=== PATIENT | female | born 1960 | race Caucasian/White ===

== ENCOUNTER 2023-05-18 13:17 | Inpatient (IN) | payer BC ==
[2023-05-18] MEDS ORDERED: HYDRALAZINE HCL 20 MG/ML VIAL ONE (14:18)
[2023-05-18 14:19] LABS: Absolute Lymphocytes (CBC) 2.3 K/uL (0.7-4.9); Hematocrit 47.1 % (36.0-45.0); Lymphocytes % 21.8 % (15.3-44.8); MCV 85.4 fL (80-100); MPV 8.7 fL (7.6-11.3); Platelets 266 thou/uL (152-406); RBC Red Blood Cell Count 5.52 M/uL (3.86-4.86)
[2023-05-18 14:25] LABS: Protime INR 1.11
[2023-05-18 14:32] LABS: Albumin 3.7 g/dL (3.4-5.0); Bilirubin Direct 0.2 mg/dL (0-0.2); Bilirubin Indirect, Calculated 0.4 mg/dL (0.2-0.8); Bilirubin Total 0.6 mg/dL (0.2-1.0); Magnesium 1.8 mg/dL (1.6-2.4); Potassium 3.8 mEq/L (3.5-5.1); Protein, Total 7.7 g/dL (6.4-8.2); Troponin High Sensitivity 5.8 pg/mL (<58.9)
--- NOTE | 2023-05-18 14:33 | RAD REPORT ---
EXAM DESCRIPTION: CT - Head Brain Wo Cont - 05/18/2023 1:37 pm CLINICAL HISTORY: NUMBNESS COMPARISON: No comparisons TECHNIQUE: Noncontrast head CT images were obtained without IV contrast. Multiplanar reformats were generated and reviewed. All CT scans are performed using dose optimization technique as appropriate and may include automated exposure control or mA/KV adjustment according to patient size. FINDINGS: Patchy hypoattenuation involving the cortical/ subcortical left occipital lobe and adjacen t left posterior parietal parasagittal lobe. Foci of hypoattenuation along the left body of corpus ca llosum, right centrum semiovale, and left thalamus. Other subtle patchy deep white matter hypoattenua tion most pronounced in the peritrigonal regions, nonspecific, but may relate to chronic small vessel ischemic changes. No intracranial hemorrhage, mass, or edema. Midline structures are unremarkable. Normal ventricular caliber for age. No abnormal extra-axial fluid collections. Mastoid air cells and visualized portions of the paranasal sinuses are clear. No acute bony findings. IMPRESSION: Left occipital and parietal areas of hypoattenuation, may relate to subacute or chronic infarcts. Additional areas of patchy hypoattenuation involving the right centrum semiovale, left corpus callosu m body, and left thalamus. These may relate to foci of infarct/ischemia of uncertain age, although le ss likely may represent sequelae of demyelination in the appropriate clinical setting. The findings were communicated to All Duarte on 05/18/2023 at 14:25 hours.
--- NOTE | 2023-05-18 15:20 | ER ---
Nurse's Notes [facility] Name: Ailyn Cade Age: 63 yrs Sex: Female : 1960 Arrival Date: 05/18/2023 Time: 13:17 Bed 19 Private MD: Diagnosis: Cerebral infarction, unspecified;Paresthesia and weakness of the left upper extremity Presentation: 05/18 13:27 Chief complaint: Patient states: "Around 3pm yesterday, my left arm went numb and I mb9 can't feel any sensation. It feels heavy and weak." Pt denies SOB/CP. Coronavirus screen: Vaccine status: Patient reports receiving the 2nd dose of the covid vaccine. Ebola Screen: No symptoms or risks identified at this time. Initial Sepsis Screen: Does the patient meet any 2 criteria? No. Patient's initial sepsis screen is negative. Does the patient have a suspected source of infection? No. Patient's initial sepsis screen is negative. Risk Assessment: Do you want to hurt yourself or someone else? Patient reports no desire to harm self or others. Onset of symptoms was May 18, 2023. 13:27 Method Of Arrival: Ambulatory mb9 13:27 Acuity: SPENCER 2 mb9 Triage Assessment: 13:30 General: Appears uncomfortable, Behavior is anxious, crying. Pain: Denies pain. EENT: mb9 No deficits noted. Neuro: Level of Consciousness is awake, alert, obeys commands, Oriented to person, place, time, situation, Appropriate for age Breakfast Server are weak on left Weakness in left arm(s) Gait is steady, Speech is normal, Facial symmetry appears normal, Pupils are PERRLA, Numbness in left arm. Cardiovascular: Denies chest pain, shortness of breath. Respiratory: Airway is patent. Respiratory: Denies shortness of breath. GI: No signs and/or symptoms were reported involving the gastrointestinal system. : No signs and/or symptoms were reported regarding the genitourinary system. Derm: Skin is pink, warm \\T\\ dry. Musculoskeletal: Range of motion: limited in left arm. Historical: - Allergies: 13:29 No Known Allergies; mb9 - Home Meds: 13:29 None [Active]; mb9 - PMHx: 13:29 Hypertensive disorder; Diabetes mellitus; Anxiety; Hypercholesterolemia; mb9 - PSHx: 13:29 None; mb9 - Immunization history:: Adult Immunizations up to date. - Social history:: Smoking status: Patient denies any tobacco usage or history of. Screenin:30 [facility] ED Fall Risk Assessment (Adult) Score/Fall Risk Level 0 - 2 = Low Risk. Abuse eh3 screen: Denies threats or abuse. Denies injuries from another. Nutritional screening: No deficits noted. Tuberculosis screening: No symptoms or risk factors identified. Assessment: 13:30 General: Appears in no apparent distress. uncomfortable, Behavior is cooperative, eh3 appropriate for age, anxious. Pain: Denies pain. Neuro: Level of Consciousness is awake, alert, obeys commands, Oriented to person, place, time, situation, Speech is normal, Facial symmetry appears normal, Pupils are PERRLA, Tingling in left arm Numbness in left arm. Cardiovascular: Capillary refill < 3 seconds Patient's skin is warm and dry. Rhythm is sinus rhythm. Respiratory: Airway is patent Respiratory effort is even, unlabored, Respiratory pattern is regular, symmetrical. GI: Abdomen is round non-distended. Derm: Skin is pink, warm \\T\\ dry. Musculoskeletal: Circulation, motion, and sensation intact. in all except left arm. 14:30 Reassessment: Patient appears in no apparent distress at this time. Patient and/or eh3 family updated on plan of care and expected duration. Pain level reassessed. Patient is alert, oriented x 3, equal unlabored respirations, skin warm/dry/pink. 15:30 Reassessment: Patient appears in no apparent distress at this time. Patient and/or eh3 family updated on plan of care and expected duration. Pain level reassessed. Patient is alert, oriented x 3, equal unlabored respirations, skin warm/dry/pink. 16:30 Reassessment: Patient appears in no apparent distress at this time. Patient and/or eh3 family updated on plan of care and expected duration. Pain level reassessed. Patient is alert, oriented x 3, equal unlabored respirations, skin warm/dry/pink. 17:30 Reassessment: Patient appears in no apparent distress at this time. Patient and/or eh3 family updated on plan of care and expected duration. Pain level reassessed. Patient is alert, oriented x 3, equal unlabored respirations, skin warm/dry/pink. 19:23 General: Appears in no apparent distress. uncomfortable, Behavior is calm, cooperative. lg3 Pain: Denies pain. Neuro: No deficits noted. [place]edo Agitation-Sedation Scale (RASS): 0 - Alert and Calm Level of Consciousness is awake, alert, obeys commands, Oriented to person, place, time, situation, Breakfast Server are weak on left Weakness Paralysis in left arm(s) Speech is normal, Facial symmetry appears normal, Pupils are PERRLA, Numbness in left arm. Cardiovascular: No deficits noted. Denies chest pain, shortness of breath, Capillary refill < 3 seconds Clubbing of nail beds is absent JVD is absent Patient's skin is warm and dry. Respiratory: No deficits noted. Airway is patent Respiratory effort is even, unlabored, Respiratory pattern is regular, symmetrical. GI: Abdomen is round non-distended, obese, Pt is actively vomiting bile, undigested food, Reports nausea, vomiting. : No deficits noted. No signs and/or symptoms were reported regarding the genitourinary system. EENT: No deficits noted. No signs and/or symptoms were reported regarding the EENT system. Derm: No deficits noted. No signs and/or symptoms reported regarding the dermatologic system. Skin is intact, is healthy with good turgor, Skin is dry, Skin is normal, Skin temperature is warm. Musculoskeletal: Circulation, motion, and sensation intact. Reports numbness in left arm. Vital Signs: 13:27 BP 195 / 97; Pulse 77; Resp 20; Temp 98; Pulse Ox 100% on R/A; Weight 95.25 kg; Height mb9 5 ft. 2 in. ; Pain 0/10; 14:00 BP 191 / 102; Pulse 79; Resp 20; Pulse Ox 100% on R/A; eh3 15:15 BP 188 / 85; Pulse 67; Resp 20; Pulse Ox 97% on R/A; eh3 15:30 BP 184 / 93; Pulse 63; Resp 20; Pulse Ox 97% on R/A; eh3 16:00 BP 192 / 84; Pulse 71; Resp 17; Pulse Ox 97% on R/A; eh3 16:30 BP 187 / 84; Pulse 71; Resp 20; Pulse Ox 97% on R/A; eh3 17:30 BP 152 / 82; Pulse 71; Resp 15; Pulse Ox 97% on R/A; eh3 19:23 BP 170 / 89; Pulse 73; Resp 17 S; Pulse Ox 97% on R/A; lg3 13:27 Body Mass Index 38.41 (95.25 kg, 157.48 cm) mb9 13:27 Pain Scale: Adult mb9 NIH Stroke Scale Scores: 13:30 NIHSS Score: 0 [facility] ED Course: 13:18 Patient arrived in ED. mb9 13:24 Bhupendra Santa MD is Attending Physician. rt 13:26 [facility] jh7 13:29 Triage completed. mb9 13:29 Arm band placed on. mb9 13:30 Patient has correct armband on for positive identification. Bed in low position. Call eh3 light in reach. Side rails up X2. Adult w/ patient. Provided Education on: Use of call talley. Client placed on continuous cardiac and pulse oximetry monitoring. NIBP monitoring applied. 13:31 Mariam Woo, RN is Primary Nurse. eh3 13:38 CT Head Brain wo Cont In Process Unspecified. EDMS 13:49 XRAY Chest (1 view) In Process Unspecified. EDMS 13:55 Inserted saline lock: 22 gauge in left antecubital area, using aseptic technique. Blood eh3 collected. 14:58 Brain W/Wo Cont In Process Unspecified. EDMS 15:17 Jelani Carmona is Hospitalizing Provider. jh7 16:32 No provider procedures requiring assistance completed. eh3 17:25 Inserted saline lock: 22 gauge in right antecubital area, using aseptic technique. eh3 17:26 IV discontinued, intact, bleeding controlled, No redness/swelling at site. Pressure eh3 dressing applied, IV bleeding at insertion site, pt bending arm frequently and unable to keep left arm still. 19:23 Door closed. Noise minimized. Warm blanket given. Family accompanied patient. lg3 19:23 Patient maintains SpO2 saturation greater than 95% on room air. lg3 Administered Medications: 14:08 Drug: hydrALAZINE IVP 10 mg IVP once Route: IVP; Site: left antecubital; eh3 15:15 Follow up: Response: No adverse reaction; Blood pressure is lowered eh3 19:26 Drug: Ondansetron IVP 4 mg IVP once; over 2 minutes Route: IVP; Site: right antecubital;[facility] Medication: 16:32 VIS not applicable for this client. [facility] Outcome: 15:19 Decision to Hospitalize by Provider. [facility] 20:51 Admitted to Tele accompanied by tech, via wheelchair, room 430, [facility] 20:51 Condition: stable 20:51 Instructed on the need for admit, Demonstrated understanding of instructions, 20:51 Patient left the ED. [facility] NIH Stroke Scale - NIH Stroke Score Date: 05/18/2023 Time: 13:30 Total Score = 0 10. Dysarthria (speech clarity - read or repeat words) - 0(Normal) 11. Extinction and Inattention (visual/tactile/auditory/spatial/personal) - 0(No abnormality) 1a. Level of Consciousness (LOC) - 0(Alert) 1b. Level of Consciousness (LOC) (Month \\T\\ Age) - 0(Both) 1c. LOC Commands (Open \\T\\ Closes Eyes/Environmental Air Specialist) - 0(Both) 2. Best Gaze (Lateral Gaze Paresis) - 0(Normal) 3. Visual Field Loss - 0(No visual loss) 4. Facial Palsy - 0(Normal) 5a. Left Arm: Motor (10-second hold) - 0(No drift) 5b. Right Arm: Motor (10-second hold) - 0(No drift) 6a. Left Leg: Motor (5-second hold - always test supine) - 0(No drift) 6b. Right Leg: Motor (5-second hold - always test supine) - 0(No drift) 7. Limb Ataxia (finger/nose \\T\\ heel/baig - test with eyes open) - 0(Absent) 8. Sensory Loss (pinprick arms/legs/face) - 0(Normal) 9. Best Language: Aphasia (description/naming/reading) - 0(No aphasia) Initials: [facility] Signatures: Dispatcher [employer] Vibha Lafleur RN RN 3 Mariam Woo RN RN 3 Roberta Lucio FNP STAFF CYTOTECHNOLOGIST [facility] Mehnaz Chiu RN RN Bhupendra Ellison MD MD rt Corrections: (The following items were deleted from the chart) 17:36 16:32 Patient admitted, [place] place[place] [id number]
--- NOTE | 2023-05-18 15:20 | EDPHYS ---
Physician Documentation [facility] Name: Ailyn Cade Age: 63 yrs Sex: Female : 1960 Arrival Date: 05/18/2023 Time: 13:17 Bed 19 Private MD: ED Physician Bhupendra Santa HPI: 05/18 13:30 This 63 yrs old Unknown Female presents to ER via Ambulatory with complaints of jh7 Numbness Of Arm. 13:30 63-year-old female reports left arm numbness since 3 PM yesterday. She denies injury. jh7 Reports a history of diabetes and hypertension but does not take any medicine. Denies chest pain or shortness of breath. Denies having a PCP.. Historical: - Allergies: 13:29 No Known Allergies; mb9 - Home Meds: 13:29 None [Active]; mb9 - PMHx: 13:29 Hypertensive disorder; Diabetes mellitus; Anxiety; Hypercholesterolemia; mb9 - PSHx: 13:29 None; mb9 - Immunization history:: Adult Immunizations up to date. - Social history:: Smoking status: Patient denies any tobacco usage or history of. ROS: 13:30 Constitutional: Negative for fever, chills, and weight loss, Eyes: Negative for injury, jh7 pain, redness, and discharge, Neck: Negative for injury, pain, and swelling, Cardiovascular: Negative for chest pain, palpitations, and edema, Respiratory: Negative for shortness of breath, cough, wheezing, and pleuritic chest pain, Abdomen/GI: Negative for abdominal pain, nausea, vomiting, diarrhea, and constipation, Skin: Negative for injury, rash, and discoloration, 13:30 MS/Extremity: Negative for injury and deformity, 13:30 MS/extremity: 13:30 Neuro: Positive for numbness, weakness, Negative for altered mental status, dizziness, gait disturbance, headache, loss of consciousness, speech changes, syncope, tingling, 13:30 All other systems are negative, Exam: 13:30 Constitutional: This is a well developed, well nourished patient who is awake, alert, jh7 and in no acute distress. Head/Face: Normocephalic, atraumatic. Eyes: Pupils equal round and reactive to light, extra-ocular motions intact. Lids and lashes normal. Conjunctiva and sclera are non-icteric and not injected. Cornea within normal limits. Periorbital areas with no swelling, redness, or edema. Neck: Trachea midline, no thyromegaly or masses palpated, and no cervical lymphadenopathy. Supple, full range of motion without nuchal rigidity, or vertebral point tenderness. No Meningismus. Cardiovascular: Regular rate and rhythm with a normal S1 and S2. No gallops, murmurs, or rubs. Normal PMI, no JVD. No pulse deficits. Respiratory: Lungs have equal breath sounds bilaterally, clear to auscultation and percussion. No rales, rhonchi or wheezes noted. No increased work of breathing, no retractions or nasal flaring. Abdomen/GI: Soft, non-tender, with normal bowel sounds. No distension or tympany. No guarding or rebound. No evidence of tenderness throughout. Skin: Warm, dry with normal turgor. Normal color with no rashes, no lesions, and no evidence of cellulitis. MS/ Extremity: Pulses equal, no cyanosis. Neurovascular intact. Full, normal range of motion. 13:30 Neuro: Orientation: to person, place, time \T\ situation. Mentation: is normal, Memory: is normal, Cranial nerves: grossly normal, Cerebellar function: is grossly normal, Motor: strength is 4/5 in the left arm, gravel screener strength in the L hand mildly decreased, Sensation: is normal, Gait: is steady, Vital Signs: 13:27 BP 195 / 97; Pulse 77; Resp 20; Temp 98; Pulse Ox 100% on R/A; Weight 95.25 kg; Height mb9 5 ft. 2 in. ; Pain 0/10; 14:00 BP 191 / 102; Pulse 79; Resp 20; Pulse Ox 100% on R/A; eh3 15:15 BP 188 / 85; Pulse 67; Resp 20; Pulse Ox 97% on R/A; eh3 15:30 BP 184 / 93; Pulse 63; Resp 20; Pulse Ox 97% on R/A; eh3 16:00 BP 192 / 84; Pulse 71; Resp 17; Pulse Ox 97% on R/A; eh3 16:30 BP 187 / 84; Pulse 71; Resp 20; Pulse Ox 97% on R/A; eh3 17:30 BP 152 / 82; Pulse 71; Resp 15; Pulse Ox 97% on R/A; eh3 19:23 BP 170 / 89; Pulse 73; Resp 17 S; Pulse Ox 97% on R/A; lg3 13:27 Body Mass Index 38.41 (95.25 kg, 157.48 cm) [facility] 13:27 Pain Scale: Adult 9 NIH Stroke Scale Scores: 13:30 NIHSS Score: 0 [facility] MDM: 13:26 Patient medically screened. [facility] 14:55 Differential diagnosis: Acute CVA, myasthenia gravis, multiple sclerosis, TIA. Data [facility] reviewed: vital signs, nurses notes, lab test result(s), EKG, radiologic studies, CT scan, plain films. Consideration of Admission/Observation Patient was admitted/placed on observation. Management of patient was discussed with the following: Hospitalist: Dr. Kristine Hutchins's FOOD AND DRUG RESEARCH SCIENTIST. Pulling Unit Floorhand: Dr. Gates, neurology, who requested that we put the patient on aspirin, folic acid, and a high-dose statin. He stated that the target BP would eventually be 120-130 systolic and 70-80 diastolic. Also requested that we order echo with Dopplers and MRI.. I considered the following discharge prescriptions or medication management in the emergency department Medications were administered in the Emergency Department. See MAR. Independent interpretation of the following test(s) in the Emergency Department EKG: See my EKG interpretation above. Historians other than the Patient: Spouse/Significant Other: . Care significantly affected by the following chronic conditions: Diabetes, Hypertension. Counseling: I had a detailed discussion with the patient and/or guardian regarding the historical points, exam findings, and any diagnostic results supporting the discharge/admit diagnosis, the need for further work-up and treatment in the hospital. Response to treatment: the patient's symptoms have mildly improved after treatment. 05/18 13:27 Order name: Basic Metabolic Panel; Complete Time: 14: [facility] 05/18 13:27 Order name: CBC with Diff; Complete Time: 14: [facility] 05/18 13:27 Order name: D-Dimer; Complete Time: 14: [facility] 05/18 13:27 Order name: LFT's; Complete Time: 14:35 [facility] 05/18 13:27 Order name: Magnesium; Complete Time: 14:35 [facility] 05/18 13:27 Order name: NT PRO-BNP; Complete Time: 14:35 7 05/18 13:27 Order name: PT-INR; Complete Time: 14:26 7 05/18 13:27 Order name: Troponin HS; Complete Time: 14:35 7 05/18 18:51 Order name: Lipid Profile EDMS 05/18 18:51 Order name: RPR EDMS 05/18 18:51 Order name: T4,Total EDMS 05/18 18:51 Order name: Thyroid Stimulating Hormone EDMS 05/18 18:51 Order name: Vitamin B12 Level EDMS 05/18 18:51 Order name: Vitamin D, 25 (OH), TOTAL EDMS 05/18 18:51 Order name: Basic Metabolic Panel EDMS 05/18 18:51 Order name: Basic Metabolic Panel EDMS 05/18 18:51 Order name: Basic Metabolic Panel EDMS 05/18 18:51 Order name: Basic Metabolic Panel EDMS 05/18 18:51 Order name: Basic Metabolic Panel EDMS 05/18 18:51 Order name: Basic Metabolic Panel EDMS 05/18 18:51 Order name: CBC with Automated Diff EDMS 05/18 18:51 Order name: CBC with Automated Diff EDMS 05/18 18:51 Order name: CBC with Automated Diff EDMS 05/18 18:51 Order name: CBC with Automated Diff EDMS 05/18 18:51 Order name: CBC with Automated Diff EDMS 05/18 18:51 Order name: CBC with Automated Diff EDMS 05/18 18:51 Order name: Magnesium EDMS 05/18 18:51 Order name: Magnesium EDMS 05/18 18:51 Order name: Magnesium EDMS 05/18 18:51 Order name: Magnesium EDMS 05/18 18:51 Order name: Magnesium EDMS 05/18 18:51 Order name: Magnesium EDMS 05/18 18:51 Order name: Phosphorus EDMS 05/18 18:51 Order name: Phosphorus EDMS 05/18 18:51 Order name: Phosphorus EDMS 05/18 18:51 Order name: Phosphorus EDMS 05/18 18:51 Order name: Phosphorus EDMS 05/18 18:51 Order name: Phosphorus EDMS 05/18 18:51 Order name: Anti-Thrombin III Activity EDMS 05/18 18:51 Order name: C-ANCA Anti-Proteinase 3 EDMS 05/18 18:51 Order name: Cardiolipin Antibodies G,M EDMS 05/18 18:52 Order name: Factor V Leiden Mutation EDAK 05/18 18:52 Order name: Homocysteine EDAK 05/18 18:52 Order name: Miscellaneous Test Lab [facility] 05/18 18:52 Order name: P-ANCA Anti-Myeloperoxidase Ab EDAK 05/18 18:52 Order name: Protein C Antigen EDAK 05/18 18:52 Order name: Protein Electo w/M Kevin Serum EDAK 05/18 18:52 Order name: Protein S (Total EDAK 05/18 18:52 Order name: PROTHROMBIN GENE ANALYSIS (F2) EDAK 05/18 13:27 Order name: XRAY Chest (1 view); Complete Time: 16:35 [facility] 05/18 13:27 Order name: CT Head Brain wo Cont; Complete Time: 14:35 [facility] 05/18 14:39 Order name: Brain W/Wo Cont; Complete Time: 16:35 [facility] 05/18 18:51 Order name: Echo with Doppler [facility] 05/18 18:52 Order name: Chest Pa And Lat (2 Views) EDAK 05/18 18:52 Order name: Carotid Artery Bilateral EDAK 05/18 13:27 Order name: EKG; Complete Time: 13:28 [facility] 05/18 18:51 Order name: IRF Screen EDAK 05/18 18:51 Order name: Physical Therapy Consult [facility] 05/18 18:51 Order name: Speech Therapy Consult [facility] 05/18 13:27 Order name: Cardiac monitoring; Complete Time: 14:01 [facility] 05/18 13:27 Order name: EKG - Nurse/Tech; Complete Time: 14:01 [facility] 05/18 13:27 Order name: IV Saline Lock; Complete Time: 14:01 [facility] 05/18 13:27 Order name: Labs collected and sent; Complete Time: 14:01 [facility] 05/18 13:27 Order name: O2 Per Protocol; Complete Time: 14:01 [facility] 05/18 13:27 Order name: O2 Sat Monitoring; Complete Time: 14:01 [facility] 05/18 14:50 Order name: Recheck B/P; Complete Time: 15:45 [facility] EC:48 Rate is 70 beats/min. Rhythm is regular. QRS Silt is Normal. VT interval is normal at [facility] 134 msec. QRS interval is normal at 76 msec. QT interval is normal at 434 msec. No Q waves. T waves are Normal. No ST changes noted. Clinical impression: Normal ECG. Administered Medications: 14:08 Drug: hydrALAZINE IVP 10 mg IVP once Route: IVP; Site: left antecubital; 3 15:15 Follow up: Response: No adverse reaction; Blood pressure is lowered 3 19:26 Drug: Ondansetron IVP 4 mg IVP once; over 2 minutes Route: IVP; Site: right antecubital;3 Disposition: 18:27 Co-signature as Attending Physician, Bhupendra Santa MD I reviewed the patient's care rt provided by the Advanced Practice Provider and agree with the diagnosis and treatment plan. Disposition Summary: 05/18/23 15:19 Hospitalization Ordered Notes: Hospitalization Status: Inpatient Admission [facility] Provider: Jelani Carmona [facility] Location: Telemetry/MedSurg (Inpatient) [facility] Condition: Stable [facility] Problem: new [facility] Symptoms: are unchanged [facility] Bed/Room Type: Standard [facility] Room Assignment: 430(05/18/23 19:29) Diagnosis - Cerebral infarction, unspecified [facility] - Paresthesia and weakness of the left upper extremity [facility] Forms: - Medication Reconciliation Form [facility] - SBAR form [facility] - Leadership Thank You Letter [facility] NIH Stroke Scale - NIH Stroke Score Date: 05/18/2023 Time: 13:30 Total Score = 0 10. Dysarthria (speech clarity - read or repeat words) - 0(Normal) 11. Extinction and Inattention (visual/tactile/auditory/spatial/personal) - 0(No abnormality) 1a. Level of Consciousness (LOC) - 0(Alert) 1b. Level of Consciousness (LOC) (Month \T\ Age) - 0(Both) 1c. LOC Commands (Open \T\ Closes Eyes/Radiotelephone Technical Operator) - 0(Both) 2. Best Gaze (Lateral Gaze Paresis) - 0(Normal) 3. Visual Field Loss - 0(No visual loss) 4. Facial Palsy - 0(Normal) 5a. Left Arm: Motor (10-second hold) - 0(No drift) 5b. Right Arm: Motor (10-second hold) - 0(No drift) 6a. Left Leg: Motor (5-second hold - always test supine) - 0(No drift) 6b. Right Leg: Motor (5-second hold - always test supine) - 0(No drift) 7. Limb Ataxia (finger/nose \T\ heel/baig - test with eyes open) - 0(Absent) 8. Sensory Loss (pinprick arms/legs/face) - 0(Normal) 9. Best Language: Aphasia (description/naming/reading) - 0(No aphasia) Initials: [facility] Signatures: Dispatcher [employer] EDMS Suzanna Pandey RN RN Vibha Pena RN RN 3 Mariam Woo RN RN 3 Roberta Lucio, DICTAPHONE TYPIST DICTAPHONE TYPIST [facility] Mehnaz Chiu RN RN mb9 Bhupendra Santa MD MD rt Corrections: (The following items were deleted from the chart) 14:39 14:05 Brain Wo Cont+MRI.RAD.BRZ ordered. EDMS EDMS 14:40 14:27 Brain With Cont+MRI.RAD.BRZ ordered. EDMS EDMS 19:29 15:19 [facility]
--- NOTE | 2023-05-18 15:56 | RAD REPORT ---
[facility]51 [facility] CLINICAL HISTORY: CHEST PAIN COMPARISON: No comparisons TECHNIQUE: Portable AP view of the chest. FINDINGS: The lungs are clear. No pneumothorax or effusion. The cardiomediastinal contours are unre markable. IMPRESSION: No acute cardiopulmonary process.
--- NOTE | 2023-05-18 16:31 | RAD REPORT ---
EXAM DESCRIPTION: MRI - Brain W/Wo Cont - 05/18/2023 3:06 pm CLINICAL HISTORY: NUMBNESS COMPARISON: Noncontrast head CT of the same day TECHNIQUE: Multiplanar multisequence MRI of the brain performed before and after intravenous adminis tration of 20 mL MultiHance. FINDINGS: Multiple foci of diffusion signal abnormality and corresponding T2/FLAIR hyperintensity. T he largest of these are present along the left body of corpus callosum, and the right centrum semiova le. Marginal crescentic/incomplete ring enhancement along the superior margins of the left body of co rpus callosum lesion. Other punctate foci of diffusion restriction are seen throughout the right fron tay lobe and to lesser extent right parietal lobe, and juxta cortical locations. Chronic appearing left occipital and parasagittal parietal regions of encephalomalacia and gliosis. Other scattered foci of deep white matter T2/FLAIR hyperintensities, nonspecific. No evidence of acute intracranial hemorrhage or abnormal extra-axial fluid collections. Ventricular caliber within normal for age. Midline structures are unremarkable. No mass effect or midline shift. Major vascular flow voids are preserved. Mastoid air cells and paranasal sinuses are clear. IMPRESSION: Multiple foci of diffusion signal abnormality, including scattered abnormalities in the right frontal and parietal lobes, as well as a single left corpus callosum focus which demonstrates s ome marginal enhancement. Findings favor scattered acute to subacute ischemic foci, probably of embol ic etiology. The left corpus callosum focus may relate to a similar etiology, less likely this could be related to demyelinating disease. Please correlate clinically. The findings were communicated to Roberta Osorio on 05/18/2023 at 16:09 hours.
--- NOTE | 2023-05-18 18:58 | P.HP ---
Certification for Inpatient Patient admitted to: Inpatient With expected LOS: >2 Midnights Patient will require the following post-hospital care: None Practitioner: I am a practitioner with admitting privileges, knowledge of patient current condition, hospital course, and medical plan of care. Services: Services provided to patient in accordance with Admission requirements found in Title 42 Section 412.3 of the Code of Federal Regulations Patient History Date of Service: 05/18/23 Reason for admission: left arm weakness History of Present Illness: Aliyn Bhatia 63-year-old female with past medical history of hypertension and diabetes type 2 presents to the ED with complaints of left arm numbness. She reports this to her left arm started 3 PM yesterday associated symptoms nausea, vomiting, and fever. at bedside reports noticing her routine was off, she was not locking the door, setting up his medications, and was in bed sleeping when he got home last night. She was seen sleeping in the recliner and sleeping in bed but Ailyn does not remember sleeping most of the day. She is noncompliant with her hypertension and diabetes medications. Initial vitals blood pressure 195/97, heart rate 77, respirations 20, temperature 98, pulse ox 100% on room air. Checks x-ray shows lungs are clear, no pneumothorax or effusion, cardiomediast inal contours are unremarkable. CT head without reveals a left occipital and parietal areas of hypoattenuation may relate to subacute or chronic infarcts. MRI brain with and without reports multiple foci of diffusion signal abnormality, including scattered abnormalities in the right frontal and parietal lobes, as well as a single left corpus callosum focus which demonstrates some marginal enhancement. Findings favors scattered acute to subacute ischemic foci, probably an of embolic etiology Ailyn will be admitted to hospitalist service consulting Dr. Gates for further treatment and management. Review of Systems General: Fever Eyes: Unremarkable ENT: Unremarkable Respiratory: Unremarkable Cardiovascular: Unremarkable Gastrointestinal: Nausea, Vomiting, Unremarkable Genitourinary: Unremarkable Musculoskeletal: Other (left arm numbness) Neurological: Weakness (left arm), Numbness (left arm) Physical Examination - Physical Exam General: Alert, Oriented x3 HEENT: Atraumatic, Normocephalic, PERRLA Neck: Supple, 2+ carotid pulse no bruit, JVD not distended Respiratory: Clear to auscultation bilaterally, Normal air movement Cardiovascular: No edema, Normal pulses, Regular rate/rhythm, Normal S1 S2 Capillary refill: <2 Seconds Gastrointestinal: Hypoactive, Soft and benign Musculoskeletal: No clubbing, No swelling, No contractures Integumentary: No rashes Neurological: Normal speech, Abnormal strength (left sided weakness 2/5) - Studies Laboratory Data (last 24 hrs) 05/18/23 05/18/23 05/18/23 13:58 13:58 13:58 WBC 10.70 Hgb 16.5 H Hct 47.1 H Plt Count 266 PT 12.2 INR 1.11 Sodium 134 L Potassium 3.8 BUN 9 Creatinine 0.72 Glucose 247 H Magnesium 1.8 Total Bilirubin 0.6 AST 40 H ALT 76 H Alkaline Phosphatase 92 Assessment and Plan - Plan Assessment and Plan Acute vs Subacute stroke Left arm numbness and weakness -consult Dr. Gates -atorvastatin, asa, folic acid -ECHO -MRI "Multiple foci of diffusion signal abnormality, including scattered abnormalities in the right frontal and parietal lobes, as well as a single left corpus callosum focus which demonstrates some marginal enhancement. Findings favor scattered acute to subacute ischemic foci, probably of embolic etiology" -Head CT "Left occipital and parietal areas of hypoattenuation, may relate to subacute or chronic infarcts." H/o diabetes mellitus type 2 -Accucheck with SSI h/o HTN -allow permissive hypertension -restart home medication slowly Full code DVT ppx: lovenox LOS 2-3 days Discharge Plan: Home Plan to discharge in: 72 Hours - Advance Directives Does patient have a Living Will: No Does patient have a Durable POA for Healthcare: No Time Spent Managing Pts Care (In Minutes): 55
[2023-05-18] MEDS: NA CHLORIDE 0.9% 1,000 ML IV SCH ×2 (19:00→22:02)
[2023-05-18 19:23] LABS: T4,Total 12.1 ug/dL (4.8-13.9); Thyroid Stimulating Hormone 2.38 uIU/mL (0.358-3.740)
[2023-05-18] MEDS ORDERED: NA CHLORIDE 0.9% 1,000 ML ONE (19:25)
[2023-05-18] MEDS ORDERED: ONDANSETRON 4 MG/2 ML VIAL ONE (19:27)
[2023-05-18] MEDS ORDERED: ATORVASTATIN 40 MG TAB PO SCH (21:00)
[2023-05-18 21:15] VITALS: O2SAT 97
[2023-05-18 21:43] VITALS: BMI 37.3
[2023-05-18] MEDS: INSULIN REGULAR (HUMAN) 100 UNIT/ML SQ SCH (22:01)
[2023-05-19] MEDS ORDERED: MORPHINE 2 MG/ML SYR IV PRN (00:01)
[2023-05-19] MEDS ORDERED: ONDANSETRON 4 MG/2 ML VIAL IV PRN (00:01)
[2023-05-19] MEDS: HYDRALAZINE HCL 20 MG/ML VIAL IV PRN ×2 (00:08→08:11)
[2023-05-19 07:31] LABS: Hematocrit 46.2 % (36.0-45.0); Lymphocytes % 20.5 % (15.3-44.8); MCV 86.2 fL (80-100); MPV 9.4 fL (7.6-11.3); Platelets 225 thou/uL (152-406); RBC Red Blood Cell Count 5.36 M/uL (3.86-4.86)
--- NOTE | 2023-05-19 07:41 | RAD REPORT ---
EXAM DESCRIPTION: USCarotid Artery Ddybzwhzq01/10/2023 2:41 am CLINICAL HISTORY: CVA COMPARISON: None FINDINGS: The velocity of the right internal carotid artery equals 100 cm/sec. The right ICA/CCA rat io 0.9 Mild plaque within the common carotid and right internal carotid arteries. Adequate evaluation of the left internal carotid artery could not be performed due to lack of patient cooperation Right vertebral artery demonstrates antegrade flow IMPRESSION: Mild plaque within the right internal carotid artery Inadequate evaluation of the left internal carotid artery as described above NASCET criteria used. Mild 0-49% stenosis Moderate 50-69% stenosis Severe 70-99% stenosis
[2023-05-19 08:03] LABS: Magnesium 2.1 mg/dL (1.6-2.4); Phosphorus 3.3 mg/dL (2.5-4.9); Potassium 3.8 mEq/L (3.5-5.1)
[2023-05-19] MEDS: INSULIN REGULAR (HUMAN) 100 UNIT/ML SQ SCH ×3 (08:12→16:30)
[2023-05-19] MEDS: NA CHLORIDE 0.9% 1,000 ML IV SCH (08:12)
[2023-05-19 08:53] LABS: Blood Morphology Comment NOT SEEN (NOT SEEN); Platelet Estimate ADEQ; White Blood Cell Scan OK (OK)
[2023-05-19] MEDS ORDERED: ENOXAPARIN 40 MG/0.4 ML SQ SCH (09:00)
[2023-05-19] MEDS ORDERED: FOLIC ACID 1 MG TABLET PO SCH (09:00)
[2023-05-19] MEDS ORDERED: ASPIRIN EC 81 MG TAB PO SCH (09:00)
--- NOTE | 2023-05-19 10:38 | P.PN ---
Date of Service: 05/19/23 Subjective: left sided numbness/weakness of arm now affecting legs - occurred overnight reports walking fine without issues yesterday; now left leg feels weaker today reports not taking any home medications BP elevated in 190-200s systolic ROS: 10 point ROS as noted above, otherwise negative Physical Exam: GEN: Alert, oriented, NAD HEENT: Normal conjunctiva, sclera anicteric CV: Regular rate and rhythm, no edema Pulm: Nonlabored respirations on room air ABD: Soft, nontender, nondistended MSK: No joint tenderness Integumentary: No rashes Neuro: Normal speech, left-sided weakness/numbness vitals reviewed Problem List: Acute vs Subacute CVA Left sided numbness and weakness NIDDM2 Hypertension Acute vs Subacute CVA Left sided numbness and weakness Head CT (05/18): Left occipital and parietal areas of hypoattenuation, may relate to subacute or chronic infarcts. MRI brain (05/18): Multiple foci of diffusion signal abnormality, including scattered abnormalities in the right frontal and parietal lobes, as well as a single left corpus callosum focus which demonstrates some marginal enhancement. Findings favor scattered acute to subacute ischemic foci, probably of embolic etiology Carotid u/s (05/18): Mild plaque within the right internal carotid artery; unable to eval left carotid Neurology consulted continue atorvastatin, aspirin Echo ordered PT/ST consulted NPO until eval by speech continue IV fluids while NPO PRN pain medication NIDDM2 Accucheck with SSI Hypertension allow permissive hypertension reports not taking any home medications Hydralazine PRN VTE: Lovenox Code: Full Dispo: Home Pending further workup
--- NOTE | 2023-05-19 11:43 | EKG ---
Test Date: 2023-05-18 Test Time: 13:48:50 [employer] Specialist: HONG MEASUREMENT RESULTS: Intervals: Rate: 70 NC: 134 QRSD: 76 QT: 434 QTc: 468 [place]: P: 41 NC: 134 QRS: 78 T: 89 INTERPRETIVE STATEMENTS: Normal sinus rhythm Normal ECG No previous ECG available for comparison Electronically Signed On 05-19-23 11:40:18 CDT by Srikanth Chavez
--- NOTE | 2023-05-19 14:06 | RAD REPORT ---
EXAM DESCRIPTION: CT - Head angio - 05/19/2023 1:15 pm CLINICAL HISTORY: evolving stroke symptoms, now LLE weak/numb COMPARISON: Head Brain Wo Cont dated 05/18/2023; Brain W/Wo Cont dated 05/18/2023; Neck Angio dated TECHNIQUE: Axial CT angiography images of the head was performed with multiplanar and maximum intens ity projection reconstructions. Images performed following intravenous administration of 100mL Isovue 370. All CT scans are performed using dose optimization technique as appropriate and may include automated exposure control or mA/KV adjustment according to patient size. FINDINGS: Motion artifact somewhat limits evaluation. Marked narrowing versus occlusion of the proxi mal aspect of the superior division of the right MCA, see sagittal image 134/246 among others. Short segment severe narrowing of the proximal to mid left V2 segment, see axial image 67/162 among others. No evidence of aneurysm or dissection flap is detected. No vascular malformation identified. Antegrade flow is seen in the vertebral arteries. The vertebral arteries are codominant. The visualized dural venous sinuses are grossly patent. IMPRESSION: Severe narrowing versus occlusion of the proximal superior division of the right MCA. Short segment severe narrowing of the proximal to mid left V2 segment. No evidence of occlusion or significant stenosis in the posterior circulation. The findings were communicated to Dr. Gates on 05/19/2023 at 14:01 hours.
--- NOTE | 2023-05-19 14:07 | RAD REPORT ---
EXAM DESCRIPTION: CT - Neck Angio - 05/19/2023 1:15 pm CLINICAL HISTORY: evolving stroke symptoms, now LLE weak/numb COMPARISON: No comparisons TECHNIQUE: Axial CT angiography images of the head was performed with multiplanar and maximum intens ity projection reconstructions. Images performed following intravenous administration of 100mL Isovue 370. All CT scans are performed using dose optimization technique as appropriate and may include automated exposure control or mA/KV adjustment according to patient size. Quantification of carotid stenosis, if any, is performed according to NASCET criteria. FINDINGS: A left aortic arch is identified with normal three vessel configuration of the great vesse ls. No significant flow abnormality is seen of the common carotid bilaterally. No significant stenosis is identified involving the cervical segments of both internal carotid arteri es. Normal flow is seen within both vertebral arteries. IMPRESSION: No significant flow abnormality of the neck vessels is identified. CAROTID STENOSIS REFERENCE USING NASCET CRITERIA: % ICA stenosis = (1 - narrowest ICA diameter/diameter of distal cervical ICA) x 100. Mild - <50% stenosis. Moderate - 50-69% stenosis. Severe - 70-94% stenosis. Near occlusion - 95-99% stenosis. Occluded - 100% stenosis.
[2023-05-19 16:56] VITALS: TEMP 98.7
[2023-05-19 18:03] VITALS: BP 168/82
--- NOTE | 2023-05-20 07:00 | P.DS ---
Admission Date: 05/18/23 Discharge Date: 05/19/23 Disposition: TRANSFER TO [facility] Reason for Admission: left arm weakness Consultations: Neurology - Dr. Gates Brief History of Present Illness: 63yo F, PMH: hypertension and diabetes type 2 Patient presents to the ED with complaints of left arm numbness. She reports this to her left arm started 3 PM yesterday associated symptoms nausea, vomiting, and fever. at bedside reports noticing her routine was off, she was not locking the door, setting up his medications, and was in bed sleeping when he got home last night. She was seen sleeping in the recliner and sleeping in bed but Ailyn does not remember sleeping most of the day. She is noncompliant with her hypertension and diabetes medications.Initial vitals blood pressure 195/97, heart rate 77, respirations 20, temperature 98, pulse ox 100% on room air. CT head without reveals a left occipital and parietal areas of hypoattenuation may relate to subacute or chronic infarcts. MRI brain with and without reports multiple foci of diffusion signal abnormality, including scattered abnormalities in the right frontal and parietal lobes, as well as a single left corpus callosum focus which demonstrates some m arginal enhancement. Findings favors scattered acute to subacute ischemic foci, probably an of embolic etiology Hospital Course: Problem List: Acute vs Subacute CVA Left sided numbness and weakness NIDDM2 Hypertension Patient presented with left arm numbness. Overnight patient/family started to feel numbness/weakness of her left leg. CTA neck/head noted severe narrowing versus occlusion of the proximal superior division of the right MCA. Short segment severe narrowing of the proximal to mid left V2 segment. Initiated transfer to tertiary level of care facility to [facility] due to needing a dedicated neuro interventionalist given CTA results. Per family 05/18 - 20:45-21:00 was the last known time patient was noted to be able to ambulate. Imagining this hospitalization: CT head (05/18): Left occipital and parietal areas of hypoattenuation, may relate to subacute or chronic infarcts. Additional areas of patchy hypoattenuation involving the right centrum semiovale, left corpus callosum body, and left thalamus. These may relate to foci of infarct/ischemia of uncertain age, although less likely may represent sequelae of demyelination in the appropriate clinical setting. MRI brain (05/18): Multiple foci of diffusion signal abnormality, including scattered abnormalities in the right frontal and parietal lobes, as well as a single left corpus callosum focus which demonstrates some marginal enhancement. Findings favor scattered acute to subacute ischemic foci, probably of embolic etiology. Carotid u/s (05/18):: Mild plaque within the right internal carotid artery. Inadequate evaluation of the left internal carotid artery as described above CTA neck/head (05/19): severe narrowing versus occlusion of the proximal superior division of the right MCA. Short segment severe narrowing of the proximal to mid left V2 segment. Physical Exam: GEN: Alert, oriented, NAD HEENT: Normal conjunctiva, sclera anicteric CV: Regular rate and rhythm, no edema Pulm: Nonlabored respirations on room air ABD: Soft, nontender, nondistended MSK: No joint tenderness Integumentary: No rashes Neuro: Normal speech, left-sided weakness/numbness Vital Signs/Physical Exam: Temp Pulse Resp BP Pulse Ox 98.7 F 81 20 168/82 H 95 05/19/23 16:00 05/19/23 16:00 05/19/23 16:00 05/19/23 17:00 05/19/23 16:00 Laboratory Data at Discharge: WBC 14.40 thou/uL (4.3-10.9) H 05/19/23 06:48 Hgb 15.4 g/dL (12.0-15.0) H 05/19/23 06:48 Hct 46.2 % (36.0-45.0) H 05/19/23 06:48 Plt Count 225 thou/uL (152-406) 05/19/23 06:48 PT 12.2 SECONDS (9.5-12.5) 05/18/23 13:58 INR 1.11 05/18/23 13:58 Sodium 136 mEq/L (136-145) 05/19/23 06:48 Potassium 3.8 mEq/L (3.5-5.1) 05/19/23 06:48 BUN 9 mg/dL (7-18) 05/19/23 06:48 Creatinine 0.68 mg/dL (0.55-1.02) 05/19/23 06:48 Glucose 245 mg/dL (74-106) H 05/19/23 06:48 Phosphorus 3.3 mg/dL (2.5-4.9) 05/19/23 06:48 Magnesium 2.1 mg/dL (1.6-2.4) 05/19/23 06:48 Total Bilirubin 0.6 mg/dL (0.2-1.0) 05/18/23 13:58 AST 40 U/L (15-37) H 05/18/23 13:58 ALT 76 U/L (13-56) H 05/18/23 13:58 Alkaline Phosphatase 92 U/L (45-117) 05/18/23 13:58 Triglycerides 103 mg/dL (<150) 05/19/23 06:48 Cholesterol 193 mg/dL (<200) 05/19/23 06:48 HDL Cholesterol 48 mg/dL (40-60) 05/19/23 06:48 Cholesterol/HDL Ratio 4.02 05/19/23 06:48 Home Medications: NK [No Home Meds] 05/18/23 Physician Discharge Instructions: Patient presented with left arm numbness. Overnight patient/family started to feel numbness/weakness of her left leg. CTA neck/head noted severe narrowing versus occlusion of the proximal superior division of the right MCA. Short segment severe narrowing of the proximal to mid left V2 segment. Initiated transfer to tertiary level of care facility to [facility] due to needing a dedicated neuro interventionalist given CTA results. Per family 05/18 - 20:45-21:00 was the last known time patient was noted to be able to ambulate. Imagining this hospitalization: CT head (05/18): Left occipital and parietal areas of hypoattenuation, may relate to subacute or chronic infarcts. Additional areas of patchy hypoattenuation involving the right centrum semiovale, left corpus callosum body, and left thalamus. These may relate to foci of infarct/ischemia of uncertain age, although less likely may represent sequelae of demyelination in the appropriate clinical setting. MRI brain (05/18): Multiple foci of diffusion signal abnormality, including scattered abnormalities in the right frontal and parietal lobes, as well as a single left corpus callosum focus which demonstrates some marginal enhancement. Findings favor scattered acute to subacute ischemic foci, probably of embolic etiology. Carotid u/s (05/18):: Mild plaque within the right internal carotid artery. Inadequate evaluation of the left internal carotid artery as described above CTA neck/head (05/19): severe narrowing versus occlusion of the proximal superior division of the right MCA. Short segment severe narrowing of the proximal to mid left V2 segment. Followup: NONE,NONE [Primary Care Provider] - Time spent managing pt's care (in minutes): 45
--- NOTE | 2023-05-20 09:53 | ECHO ---
HEIGHT: 5 ft 2 in WEIGHT: 204 lb 4.8 oz DATE OF STUDY: 05/19/[address]: Liset Mata NP 2-DIMENSIONAL: YES M.MODE: YES DOPPLER: YES COLOR FLOW: YES TDS: NO PORTABLE: YES DEFINITY: NO BUBBLE STUDY: NO DIAGNOSIS: STROKE CARDIAC HISTORY: CATHERIZATION: SURGERY: PROSTHETIC VALVE: PACEMAKER: MEASUREMENTS (cm) DIASTOLIC (NORMALS) SYSTOLIC (NORMALS) IVSd 1.2 (0.6-1.2) LA Diam 3.3 (1.9-4.0) LVEF 79% LVIDd 4.9 (3.5-5.7) LVIDs 2.5 (2.0-3.5) %FS 48% LVPWd 1.3 (0.6-1.2) Ao Diam 2.9 (2.0-3.7) 2 DIMENSIONAL ASSESSMENT: RIGHT ATRIUM: NORMAL LEFT ATRIUM: NORMAL RIGHT VENTRICLE: NORMAL LEFT VENTRICLE: NORMAL TRICUSPID VALVE: NORMAL MITRAL VALVE: TRACE OF MITRAL REGURGITATION PULMONIC VALVE: NORMAL AORTIC VALVE: NORMAL PERICARDIAL EFFUSION: NONE AORTIC ROOT: NORMAL LEFT VENTRICULAR WALL MOTION: NORMAL. DOPPLER/COLOR FLOW: TRACE OF MITRAL REGURGITATION. COMMENTS: 1. NORMAL LEFT VENTRICULAR EJECTION FRACTION 60-65% 2. NORMAL WALL MOTION 3. TRACE OF MITRAL REGURGITATION TECHNOLOGIST: DIANA YOU
[2023-05-21 00:21] LABS: RPR (Rapid Plasma Reagin) NON-REACT (NON-REACT)
[2023-05-21 16:13] LABS: Alpha-1-Globulins 0.3 g/dL (0.2-0.3); Alpha-2-Globulins 0.8 g/dL (0.5-0.9); Gamma Globulins 0.8 g/dL (0.8-1.7); INTERPRETATION REPORT
[2023-05-22 09:44] LABS: Protein C Antigen 108 % normal (70-140)
== END 2023-05-19 18:24 | disposition short-term general hospital (02) | DRG 65 ==
LOC: ER 13:17 → ERHOLD 18:38 → 4TH 20:36
PROVIDERS: ADMIT Internal Medicine; ATTEND Hospitalist
DX: I63.9 Cerebral infarction, unspecified (principal); G81.94 Hemiplegia, unspecified affecting left nondominant side; E11.9 Type 2 diabetes mellitus without complications; I10 Essential (primary) hypertension; E78.00 Pure hypercholesterolemia, unspecified; R20.2 Paresthesia of skin; R29.700 NIHSS score 0; T50.996A Underdosing of other drugs, medicaments and biological substances, initial encounter; Z91.128 Patient's intentional underdosing of medication regimen for other reason; Z91.148 Patient's other noncompliance with medication regimen for other reason; Z79.899 Other long term (current) drug therapy
CPT/HCPCS: 36415; 70450; 70496; 70498; 70553; 71045; 80048; 80061; 80076; 81240; 81241; 82306; 82607; 82947; 83090; 83735; 83880; 84100; 84165; 84436; 84443; 84484; 85025; 85300; 85302; 85305; 85306; 85379; 85610; 86021; 86147; 86592; 92610; 93005; 93306; 93880; 97161; 97530; 99285; A9577; J0360; J1650; J1815; J2270; J2405; J7030; Q9967